=== PATIENT | male | born 1965 | race Caucasian/White ===

== ENCOUNTER 2017-06-08 16:56 | Emergency (ER) | payer OTHER ==
[~2017-06-08] VITALS: Ht 172.7 cm; Wt 100.0 kg
[~2017-06-08 16:56] MED LIST: MEDR4PAK3 PO; OXYC-360 PO; Z.0.NO CURRENT MEDS
[2017-06-08 16:58] VITALS: BP 245/110; PULSE 75; RESP 18; TEMP 97.6; O2SAT 97
[2017-06-08 17:27] VITALS: BP 207/105
[2017-06-08 17:57] VITALS: BP 182/103; PULSE 75; RESP 18; O2SAT 98
[2017-06-08] MEDS ORDERED: amLODIPine BESYLATE 5 MG TAB PO ONE (18:45)
[2017-06-08] MEDS ORDERED: AMLO5TAB2 PO (19:19)
--- NOTE | 2017-06-08 19:24 | PD ---
HPI Chief Complaint: Hypertension Time Seen by Provider: 18:14 Travel History International Travel<30 days: No Contact w/Intl Traveler<30days: No Traveled to known affect area: No History of Present Illness HPI So 51 year-old woman who presents to the emergency department complaining of high blood pressure. He reports that he needs some headache for a little bit. He doesn't really follow up with Drs. He was at the pharmacy today when they took his blood pressure. Markedly elevated of systolic blood pressure in the 250s. He does came to the emergency department. Denies any medical problems. History Past Medical History Medical History: Denies Significant Hx Past Surgical History Surgical History: No Previous Surgery Social History Alcohol Use: Yes (2-3 drinks/daily) Tobacco Use: Yes (1 PPD) Allergies-Medications (Allergen,Severity, Reaction): Coded Allergies: No Known Allergies (Verified Adverse Reaction, Unknown, 06/08/17) Reported Meds & Prescriptions Reported Meds & Active Scripts Active No Active Prescriptions or Reported Medications Review of Systems Except as stated in HPI: all other systems reviewed are Neg Physical Exam Narrative GENERAL: Well-appearing 51-year-old man, no acute distress. SKIN: Focused skin assessment warm/dry. HEAD: Atraumatic. Normocephalic. EYES: Pupils equal and round. No scleral icterus. No injection or drainage. ENT: No nasal bleeding or discharge. Mucous membranes pink and moist. NECK: Trachea midline. No JVD. CARDIOVASCULAR: Regular rate and rhythm. No murmur appreciated. RESPIRATORY: No accessory muscle use. Clear to auscultation. Breath sounds equal bilaterally. GASTROINTESTINAL: Abdomen soft, non-tender, nondistended. Hepatic and splenic margins not palpable. MUSCULOSKELETAL: No obvious deformities. No clubbing. No cyanosis. No edema. NEUROLOGICAL: Awake and alert. No obvious cranial nerve deficits. Motor grossly within normal limits. Normal speech. PSYCHIATRIC: Appropriate mood and affect; insight and judgment normal. Data Data Last Documented VS Vital Signs Date Time Temp Pulse Resp B/P (MAP) Pulse Ox O2 Delivery O2 Flow Rate FiO2 06/08/17 17:57 75 18 182/103 (129) 98 Room Air 06/08/17 16:58 97.6 Orders Orders Basic Metabolic Panel (Bmp) (06/08/17 18:36) Amlodipine (Norvasc) (06/08/17 18:45) Labs Laboratory Tests Test 06/08/17 18:50 [facility] Medical Decision Making Medical Screen Exam Complete: Yes Emergency Medical Condition: Yes Differential Diagnosis High blood pressure, hypertensive crisis, heart disease, renal disease, other Narrative Course Is a 51-year-old male presents emergency Department with high blood pressure reading. He has some intermittent headaches that may or may not be related to the blood pressure. Nonetheless he does no evidence of hypertensive overt see. We'll check his creatinine, give him a dose of amlodipine, start him on amlodipine recommend that he follow-up for further evaluation. We had an extensive discussion regarding tobacco cessation and he seems amenable. Diagnosis Primary Impression: Hypertension Additional Instructions: Take amlodipine as prescribed. Follow-up with her primary doctor for further evaluation. Return to the emergency department for any new or worsening symptoms. Med/Other Pt SpecificInfo: Prescription(s) given Scripts Amlodipine (Amlodipine) 5 Mg Tab 5 MG PO DAILY for Blood Pressure Management, #30 TAB 0 Refills Prov: Joe Acharya MD 06/08/17 Disposition: 01 DISCHARGE HOME Condition: Stable Joe Acharya MD Jun 08, 2017 19:24
[2017-06-08 19:32] LABS: BICARBONATE 28.3 MEQ/L (21.0-32.0); POTASSIUM 4.2 MEQ/L (3.5-5.1)
[2017-06-08 19:46] VITALS: BP 221/102
== END 2017-06-08 19:53 | disposition home or self-care (01) ==
LOC: NEPE 16:56
DX: I10 Essential (primary) hypertension (principal); F17.200 Nicotine dependence, unspecified, uncomplicated
CPT/HCPCS: 80048; 99283